=== PATIENT | female | born 1980 | race Hispanic/Latino ===

== ENCOUNTER 2020-05-07 10:24 | Day surgery (SDC) | payer BC ==
[2020-05-02 12:36] LABS: Hemoglobin 14.1 g/dL (12.0-15.5); Mean Corpuscular HGB CONC 31.3 g/dL (32.0-36.0); Mean Corpuscular Hemoglobin 25.1 pg (27.0-33.0); Mean Corpuscular Volume 80.2 fl (81.6-98.3); Mean Platelet Volume 11.4 fl (7.4-10.4); Platelet Count 227 10x3/uL (150-450); Red Blood Cell (RBC) Count 5.61 10x6/uL (3.90-5.03); White Blood Cell (WBC) Count 7.8 10x3/uL (3.5-10.5)
[2020-05-02 13:27] LABS: BHCG - Serum Negative (NEGATIVE); Pregs Control Background? CLEAR/WHITE (CLR/WHITE); Pregs Control Bar Appear? YES (CONTROL BAR)
[2020-05-03 02:31] LABS: SARS-CoV-2 PCR by NAA Not Detected (NotDetected)
[2020-05-06 11:42] VITALS: BMI 358.6
[2020-05-07] MEDS ORDERED: Lidocaine 1% MPF 2 ML VIAL ONE (11:08)
[2020-05-07] MEDS ORDERED: Midazolam HCl 2 mg/2 ml Vial ONE (12:18)
[2020-05-07] MEDS ORDERED: Scopolamine 1.5 mg/72 hour Patch ONE (12:19)
[2020-05-07] MEDS ORDERED: Famotidine/PF 20 mg/2ml Vial ONE (12:19)
[2020-05-07] MEDS ORDERED: PROPOFOL 20 ML ONE ×2 (12:36→13:13)
[2020-05-07] MEDS ORDERED: Lidocaine 2% PF 5 ML VIAL ONE (12:36)
[2020-05-07] MEDS ORDERED: Ketorolac Tromethamine 30 MG/ML VIAL ONE (12:36)
[2020-05-07] MEDS ORDERED: Fentanyl 100 MCG/2 ML VIAL ONE ×2 (12:36→13:17)
[2020-05-07] MEDS ORDERED: Succinylcholine 200 MG/10 ml SYRINGE FS ONE (12:37)
[2020-05-07] MEDS ORDERED: Metoclopramide HCl 10 MG/2 ML VIAL ONE (12:38)
[2020-05-07] MEDS ORDERED: Ondansetron PF 4 MG/2 ML Vial ONE (12:38)
[2020-05-07] MEDS ORDERED: Dexamethasone 4 mg/ml Vial ONE (12:38)
[2020-05-07] MEDS ORDERED: CEFAZOLIN 1 GM VIAL ONE (12:55)
[2020-05-07] MEDS ORDERED: PHENYLEPHRINE-NS 100 MCG/ML 10 ML SYRINGE ONE (13:03)
[2020-05-07] MEDS ORDERED: ePHEDrine 50 MG/ML VIAL ONE (13:12)
== END 2020-05-07 14:45 | disposition home or self-care (01) ==
LOC: CSHSDC 10:24
PROVIDERS: ATTEND Obstetrics & Gynecology
PROC: 0UDB8ZX Extraction of Endometrium, Via Natural or Artificial Opening Endoscopic, Diagnostic (ICD-10-PCS; principal; 2020-05-07)
DX: N84.0 Polyp of corpus uteri (principal); R73.03 Prediabetes; K21.9 Gastro-esophageal reflux disease without esophagitis; E66.01 Morbid (severe) obesity due to excess calories; Z68.43 Body mass index [BMI] 50.0-59.9, adult; Z79.899 Other long term (current) drug therapy; Z20.822 Contact with and (suspected) exposure to COVID-19
CPT/HCPCS: 84703; 85027; 86850; 86900; 86901; 87635; 88305; J0690; J1100; J1885; J2001; J2250; J2405; J2704; J2765; J3010; J3490; S0028; U0003; U0005